=== PATIENT | female | born 1960 | race Hispanic/Latino ===

== ENCOUNTER 2022-08-14 18:02 | Inpatient (IN) | payer OTHER ==
[~2022-08-14] VITALS: Ht 154.9 cm; Wt 129.3 kg
[2022-08-14] MEDS ORDERED: ONDANSETRON HCL INJ 2MG/ML 2ML 2 MG/ML VIAL IV PRN ×2 (18:30→20:00)
[2022-08-14] MEDS ORDERED: SODIUM CHLORIDE 0.9% 1000ML 1,000 ML IV ONE (18:30)
[2022-08-14] MEDS ORDERED: KETOROLAC TROMETHAMINE 30 MG/ML VIAL IV STA (18:30)
[2022-08-14] MEDS ORDERED: ACETAMINOPHEN 325 MG TAB PO ONE (18:30)
[2022-08-14 19:02] LABS: BASOPHILS % 0.1 % (0.0-1.0); HEMATOCRIT 41.9 % (34.2-44.1); HEMOGLOBIN 14.2 g/dL (12.0-16.0); LYMPHOCYTES # (AUTO) 0.9 (1.0-3.2); LYMPHOCYTES % 5.3 % (18.0-39.1); MEAN CORPUSCULAR HEMOGLOBIN 30.5 pg (28-32); MEAN CORPUSCULAR HGB CONC 33.9 g/dL (31-35); MEAN CORPUSCULAR VOLUME 90.1 fL (81-99); MONOCYTES % 5.8 % (4.4-11.3); NEUTROPHILS % 88.4 % (38.7-80.0); PLATELET COUNT 184 x10e3/uL (140-360); RED BLOOD COUNT 4.65 x10e6/uL (3.6-5.1); RED CELL DISTRIBUTION WIDTH 13.9 % (11.7-14.4)
[2022-08-14 19:15] LABS: CLARITY,URINE CLOUDY (CLEAR); COLOR,URINE YELLOW (YELLOW); KETONES,URINE TRACE (NEGATIVE); LEUKOCYTE ESTERASE ,URINE MODERATE (NEGATIVE); NITRITE,URINE NEGATIVE (NEGATIVE); PROTEIN,URINE DIPSTICK 1+ (NEGATIVE); URINE UROBILINOGEN 0.2 mg/dL (0.2 - 1)
[2022-08-14 19:21] LABS: ALBUMIN 3.2 g/dL (3.5-5.0); ALBUMIN/GLOBULIN RATIO 0.7 (0.8-2.0); CREATININE, SERUM 0.71 mg/dL (0.57-1.11)
[2022-08-14 19:27] LABS: BACTERIA,URINE MODERATE /HPF; EPITHELIAL CELLS,URINE FEW /LPF; WBC,URINE (MAN) >50 /HPF (0-5)
[2022-08-14] MEDS ORDERED: Morphine 4mg INJECTION 4 MG/ML INJ IV PRN (20:00)
[2022-08-14] MEDS ORDERED: SODIUM CHLORIDE FLUSH 10 ML SYR INJ PRN (20:00)
[2022-08-14 23:22] VITALS: BP 97/58; PULSE 88; RESP 18; TEMP 98.8; O2SAT 95
[2022-08-14] MEDS: SODIUM CHLORIDE 0.9% 1000ML 1,000 ML IV SCH (23:31)
[2022-08-15] VITALS (7 sets, daily range): BP systolic 97–159; BP diastolic 58–97; PULSE 88–106; RESP 18–20; TEMP 98.4–99.1; O2SAT 95–98
[2022-08-15] MEDS: ACETAMINOPHEN 325 MG TAB PO PRN ×3 (04:35→21:45)
[2022-08-15 05:33] LABS: BASOPHILS % 0.1 % (0.0-1.0); EOSINOPHILS % 0.1 % (0.0-6.0); HEMATOCRIT 38.9 % (34.2-44.1); LYMPHOCYTES # (AUTO) 0.8 (1.0-3.2); MEAN CORPUSCULAR HGB CONC 33.4 g/dL (31-35); MEAN CORPUSCULAR VOLUME 89.6 fL (81-99); MONOCYTES # (AUTO) 0.8 (0.2-0.8); NEUTROPHILS % 87.5 % (38.7-80.0); PLATELET COUNT 162 x10e3/uL (140-360); RED BLOOD COUNT 4.34 x10e6/uL (3.6-5.1); RED CELL DISTRIBUTION WIDTH 13.6 % (11.7-14.4)
[2022-08-15] MEDS ORDERED: LISINOPRIL10 MG PO (05:51)
[2022-08-15 06:12] LABS: ANION GAP 11.8 mmol/L (8-16); CALCIUM 8.4 mg/dL (8.4-10.2); CREATININE, SERUM 0.73 mg/dL (0.57-1.11); POTASSIUM 3.8 mmol/L (3.5-5.1)
[2022-08-15] MEDS: SODIUM CHLORIDE 0.9% 1000ML 1,000 ML IV SCH ×2 (09:14→21:29)
[2022-08-15] MEDS: KETOROLAC TROMETHAMINE 10 MG TAB PO PRN (21:45)
[2022-08-16] VITALS (8 sets, daily range): BP systolic 119–167; BP diastolic 75–96; PULSE 86–101; RESP 18–20; TEMP 98.1–99.6; O2SAT 93–99
[2022-08-16] MEDS: SODIUM CHLORIDE 0.9% 1000ML 1,000 ML IV SCH ×2 (05:55→15:18)
[2022-08-16 06:31] LABS: BASOPHILS % 0.3 % (0.0-1.0); EOSINOPHILS % 0.3 % (0.0-6.0); HEMATOCRIT 39.9 % (34.2-44.1); HEMOGLOBIN 12.8 g/dL (12.0-16.0); LYMPHOCYTES # (AUTO) 1.2 (1.0-3.2); LYMPHOCYTES % 13.3 % (18.0-39.1); MEAN CORPUSCULAR HEMOGLOBIN 30.4 pg (28-32); MEAN CORPUSCULAR HGB CONC 32.1 g/dL (31-35); MEAN CORPUSCULAR VOLUME 94.8 fL (81-99); MONOCYTES # (AUTO) 0.7 (0.2-0.8); MONOCYTES % 7.5 % (4.4-11.3); NEUTROPHILS # (AUTO) 6.8 (2.1-6.9); NEUTROPHILS % 77.9 % (38.7-80.0); PLATELET COUNT 186 x10e3/uL (140-360); RED BLOOD COUNT 4.21 x10e6/uL (3.6-5.1); RED CELL DISTRIBUTION WIDTH 13.8 % (11.7-14.4)
[2022-08-16 06:52] LABS: ALBUMIN 2.6 g/dL (3.5-5.0); ALBUMIN/GLOBULIN RATIO 0.7 (0.8-2.0); CALCIUM 8.6 mg/dL (8.4-10.2); CREATININE, SERUM 0.7 mg/dL (0.57-1.11)
[2022-08-16] MEDS: KETOROLAC TROMETHAMINE 10 MG TAB PO PRN ×2 (07:07→15:45)
[2022-08-16] MEDS: ACETAMINOPHEN 325 MG TAB PO PRN ×2 (07:07→15:46)
[2022-08-16] MEDS ORDERED: METHOCARBAMOL 500 MG TAB PO ONE (12:00)
[2022-08-16] MEDS ORDERED: ONDANSETRON HCL 4 MG ORAL DISINTEGRATING TAB PO PRN (13:15)
[2022-08-16] MEDS: SENNA-S TABLET PO SCH (16:16)
[2022-08-16] MEDS: LISINOPRIL 10 MG TAB PO SCH (16:51)
[2022-08-17] VITALS: BP 132/62; PULSE 72; RESP 18; TEMP 98.3; O2SAT 99
[2022-08-17 04:00] VITALS: BP 160/79; PULSE 100; RESP 18; TEMP 99; O2SAT 98
[2022-08-17 05:34] LABS: BASOPHILS % 0.3 % (0.0-1.0); EOSINOPHILS % 0.4 % (0.0-6.0); HEMATOCRIT 38.6 % (34.2-44.1); HEMOGLOBIN 12.5 g/dL (12.0-16.0); LYMPHOCYTES # (AUTO) 1.9 (1.0-3.2); LYMPHOCYTES % 18.6 % (18.0-39.1); MEAN CORPUSCULAR HGB CONC 32.4 g/dL (31-35); MEAN CORPUSCULAR VOLUME 92.8 fL (81-99); MONOCYTES % 9.7 % (4.4-11.3); NEUTROPHILS # (AUTO) 7.1 (2.1-6.9); PLATELET COUNT 215 x10e3/uL (140-360); RED BLOOD COUNT 4.16 x10e6/uL (3.6-5.1); RED CELL DISTRIBUTION WIDTH 13.7 % (11.7-14.4)
[2022-08-17] MEDS: ACETAMINOPHEN 325 MG TAB PO PRN (05:44)
[2022-08-17] MEDS: SODIUM CHLORIDE 0.9% 1000ML 1,000 ML IV SCH ×3 (05:47→18:23)
[2022-08-17 06:01] LABS: ALBUMIN 2.6 g/dL (3.5-5.0); ALBUMIN/GLOBULIN RATIO 0.6 (0.8-2.0); ANION GAP 13.3 mmol/L (8-16); CALCIUM 8.9 mg/dL (8.4-10.2); CREATININE, SERUM 0.67 mg/dL (0.57-1.11); POTASSIUM 4.3 mmol/L (3.5-5.1)
[2022-08-17 07:23] VITALS: BP 115/61; PULSE 78; RESP 20; TEMP 97.4; O2SAT 96
[2022-08-17] MEDS: SENNA-S TABLET PO SCH ×2 (08:35→16:25)
[2022-08-17] MEDS: LISINOPRIL 10 MG TAB PO SCH (08:36)
[2022-08-17] MEDS: ENOXAPARIN SOD INJ 40 MG/0.4 ML SYR SC SCH (08:36)
[2022-08-17 11:09] VITALS: BP 132/82; PULSE 77; RESP 20; TEMP 97.8; O2SAT 96
[2022-08-17 15:45] VITALS: BP 122/73; PULSE 83; RESP 19; TEMP 97.8; O2SAT 99
[2022-08-17 20:00] VITALS: BP 150/99; PULSE 97; RESP 21; TEMP 99.1; O2SAT 96
[2022-08-18 00:17] VITALS: BP 153/79; PULSE 95; RESP 20; TEMP 98.1; O2SAT 95
[2022-08-18 04:00] VITALS: BP 139/90; PULSE 98; RESP 20; TEMP 98.1; O2SAT 96
[2022-08-18] MEDS: SODIUM CHLORIDE 0.9% 1000ML 1,000 ML IV SCH (04:20)
[2022-08-18 08:22] VITALS: BP 154/90; PULSE 76; RESP 20; TEMP 97.9; O2SAT 97
[2022-08-18] MEDS: ENOXAPARIN SOD INJ 40 MG/0.4 ML SYR SC SCH (09:00)
[2022-08-18] MEDS: LISINOPRIL 10 MG TAB PO SCH (09:11)
[2022-08-18] MEDS: SENNA-S TABLET PO SCH (09:11)
[2022-08-18 12:19] VITALS: BP 160/97; PULSE 89; RESP 20; TEMP 98.1; O2SAT 100
[2022-08-18 12:32] VITALS: BP 140/78
== END 2022-08-18 12:55 | disposition home or self-care (01) | DRG 872 ==
LOC: ER 18:06 → ERHOLD 20:07 → MED/SURG2 22:56 → OBSVTOIN 08-15 14:41
PROVIDERS: ADMIT Family Medicine Adult Medicine; ATTEND Family Medicine Adult Medicine
DX: A41.51 Sepsis due to Escherichia coli [E. coli] (principal); N10 Acute pyelonephritis; Z16.11 Resistance to penicillins; Z68.43 Body mass index [BMI] 50.0-59.9, adult; B96.20 Unspecified Escherichia coli [E. coli] as the cause of diseases classified elsewhere; I10 Essential (primary) hypertension; Z72.0 Tobacco use; E66.01 Morbid (severe) obesity due to excess calories
CPT/HCPCS: 0223U; 36415; 74176; 80048; 80053; 81001; 83605; 85025; 87040; 87071; 87086; 87186; 87205; 99284; G0378; J0696; J1650; J1885; J2405; J7030; Q0162

== ENCOUNTER 2023-05-26 05:43 | Emergency (ER) | payer OTHER ==
[~2023-05-26] VITALS: Ht 154.9 cm; Wt 127.0 kg
[~2023-05-26 05:43] MED LIST: CEFDINIR300 MG PO; DICYCLOMINE HCL20 MG PO; LISINOPRIL10 MG PO; ONDANSETRON ODT4 MG PO
[2023-05-26 05:50] VITALS: O2SAT 97
== END 2023-05-26 06:44 | disposition home or self-care (01) ==
LOC: ER 05:47
DX: R20.0 Anesthesia of skin (principal); G90.8 Other disorders of autonomic nervous system; I10 Essential (primary) hypertension; F41.9 Anxiety disorder, unspecified; F32.A Depression, unspecified; E66.01 Morbid (severe) obesity due to excess calories; F17.210 Nicotine dependence, cigarettes, uncomplicated
CPT/HCPCS: 99283